=== PATIENT | female | born 1985 | race American Indian/Alaskan Native ===

== ENCOUNTER 2022-05-27 19:59 | Emergency (ER) | payer BC, MEDICAID ==
[2022-05-27 20:06] VITALS: BP 133/108
--- NOTE | 2022-05-27 20:48 | XRay Report ---
CHEST 2 VIEWS INDICATION / CLINICAL INFORMATION: COUGH. COMPARISON: None available. FINDINGS: SUPPORT DEVICES: None. HEART / MEDIASTINUM: No significant abnormality. LUNGS / PLEURA: No significant pulmonary or pleural abnormality. No pneumothorax. ADDITIONAL FINDINGS: No significant additional findings. IMPRESSION: 1. No acute findings. Signer Name: Tyler Saab MD Signed: 05/27/2022 8:44 PM Workstation Name: [id number]
== END 2022-05-28 19:00 | disposition left against medical advice (07) ==
LOC: ED 19:59
DX: R07.89 Other chest pain (principal); R06.2 Wheezing; Z53.21 Procedure and treatment not carried out due to patient leaving prior to being seen by health care provider
CPT/HCPCS: 71046